=== PATIENT | female | born 1995 | race Caucasian/White ===

== ENCOUNTER 2023-12-31 21:36 | Emergency (ER) | payer MEDICAID ==
[~2023-12-31] VITALS: Ht 165.1 cm; Wt 65.8 kg
[2024-01-01 00:55] VITALS: BP 120/69; TEMP 98.2; O2SAT 99
== END 2024-01-01 00:55 | disposition home or self-care (01) ==
LOC: ER 21:40
DX: R51.9 Headache, unspecified (principal); Z20.822 Contact with and (suspected) exposure to COVID-19
CPT/HCPCS: 86403-TC; 87070-TC